=== PATIENT | female | born 1955 | race Caucasian/White ===

== ENCOUNTER → 2016-08-21 | Outpatient (CLI) | payer OTHER ==
--- NOTE | 2016-08-21 09:10 | US ---
Sonogram of the Abdomen August 21, 2016 0813 hours Clinical Indications: Abdominal pain. Comparison: January 17, 2009. Findings: The pancreas is not well visualized due to overlying bowel gas. There is mild atherosclero tic disease of the aorta without aneurysm. The aorta tapers from 23 to 17 mm. The liver is unremarkab le, except for very mild coarsened echotexture. The liver surface is smooth. Gallbladder is fluid vincent led. There are no stones. Gallbladder wall is 2 mm. Common bile duct is 3 mm. The right kidney measures 5.5 x 4.4 x 9.8 cm with a 1.3 cm cortex. Left kidney measures 5.2 x 4.8 x 10.4 cm with a 1.2 cm cortex. Spleen measures 8.5 x 4.2 x 8.5 cm. Impression: 1. Minimal atherosclerotic disease of the aorta. 2. No radiographic evidence of cirrhosis. 3. No sonographic source for abdominal pain.
== END ==
LOC: CIMAGING 07:33
PROVIDERS: ATTEND Physician Assistant Medical
DX: I70.0 Atherosclerosis of aorta (principal)